=== PATIENT | female | born 1990 | race Two or more races ===

== ENCOUNTER 2021-05-08 21:43 | Emergency (ER) | payer MEDICAID, OTHER ==
[~2021-05-08] VITALS: Ht 167.6 cm; Wt 104.3 kg
[2021-05-08] MEDS ORDERED: CIPRSUS OT (23:23)
[2021-05-08] MEDS ORDERED: AMOX500C2 PO (23:23)
[2021-05-08 23:45] VITALS: BP 143/79
== END 2021-05-08 23:46 | disposition home or self-care (01) ==
LOC: ER 21:47
DX: H60.91 Unspecified otitis externa, right ear (principal); H66.91 Otitis media, unspecified, right ear

== ENCOUNTER 2024-12-12 18:42 | Emergency (ER) | payer MEDICAID ==
[~2024-12-12] VITALS: Ht 167.6 cm; Wt 102.6 kg
[~2024-12-12 18:42] MED LIST: AMOX500C2 PO; CIPRSUS OT
[2024-12-12 19:29] LABS: Hematocrit 40.2 % (36.0-46.0); Hemoglobin 14.2 g/dL (12.2-16.2); Mean Corpuscular Hemoglobin 29.6 pg (28.0-32.0); Mean Corpuscular Volume 84.1 fL (80.0-100.0); Nucleated Red Blood Cells % 0.0 %
--- NOTE | 2024-12-12 19:29 | DVH ---
EXAM: XY CHEST PORTABLE CLINICAL HISTORY: congestion TECHNIQUE: Single AP view of the chest WID: COMPARISON: None FINDINGS: Lines and tubes: None Chest: The heart size and pulmonary vasculature is within normal limits. No pleural effusion, pneumothorax, or consolidation. The osseous structures are grossly intact. IMPRESSION: 1. No acute cardiopulmonary abnormality.
[2024-12-12 19:43] LABS: Alanine Aminotransferase 31 U/L (7-40); Alkaline Phosphatase 98 U/L (46-116); Anion Gap 11 (5-15); BUN/Creatinine Ratio 14.1 (10.0-20.0); Blood Urea Nitrogen 12 mg/dL (9-23); Calcium 9.9 mg/dL (8.7-10.4); Carbon Dioxide 26 mmol/L (20-31); Chloride 104 mmol/L (98-107); Glucose 96 mg/dL (74-106); Lipase 44 U/L (12-53); Potassium 4.0 mmol/L (3.5-5.1); Sodium 141 mmol/L (136-145); Total Protein 8.0 g/dL (5.7-8.2)
--- NOTE | 2024-12-12 20:01 | ED.PDOC ---
History of Present Illness HPI Comments This is a 34 year-old female who presents to the ED with a chief complaint of L Lumbosacral pain, nasal congestion, and palpitations for X1 day. Patient reports taking medication X6 hours ago to alleviate symptoms, with some alleviation noted. Patient reports recent exposure to ill family. Patient has no further complaints or modifying factors at this time. Pt otherwise denies cough, chest pain, SOB, dizziness, fever, chills, or N/V/D. Past Medical History:None Past Surgical History: Hidradenitis Suppurativa Social History: Denies ETOH, smoking, and drug use. Medications:None Allergies: None hubbard: HPI: Poor Historian. REVIEW OF SYSTEMS: CONSTITUTIONAL: Denies acute: fever, diaphoresis, chills, HEAD: Denies acute: headache, photophobia Eyes: Denies acute: Double vision, vision loss, eye pain, eye discharge. EARS: Denies acute: tinnitus, hearing loss, ear discharge, ear pain, THROAT: Denies acute: sore throat, swelling, difficulty swallowing , pain with swallowing, change in voice. NECK: Denies acute: neck pain, neck swelling, stiff neck. HEART: Denies acute : chest pain, , LUNGS: Denies acute: SOB, wheezing, cough, hemoptysis ABDOMEN: Denies acute: abdominal pain, Nausea, Vomiting, diarrhea, melena , hematemesis, hematochezia SKIN: Denies acute: rash, redness, lesions, itchiness. EXTREMITIES: Denies acute: calf pain, numbness, tingling, weakness, denies pain in extremity. Denies acute: Low back pain. Neuro: Denies acute: focal neurological deficit, motor or sensory focal neurological deficit, tremors, seizure like activity, confusion, dizziness, change in mental status, loss of bowel or bladder function, cauda equina like symptoms. : Denies acute: dysuria, hematuria, flank pain, increase in urinary frequency. PSYCH: Denies acute: hallucination, suicidal ideation, homicidal ideation. FEMALE: Denies acute: abnormal vaginal bleeding, foul odor, unusual discharge. PHYSICAL EXAM: General: ---no-----acute distress, awake and alert. Head: normocephalic, atraumatic. Neck: supple, trachea is midline, no swelling. Throat: Normal phonation. Eyes:, no erythema, no purulent discharge, no proptosis, no icterus. Heart: regular tachycardia,, no significant murmur appreciated. Lungs: no apparent respiratory distress, Able to speak in full sentences. No wheezing, no rhonchi, no crackles. No stridors Clear to auscultation bilaterally. Abdomen: non tender to palpation, non distended, soft, no guarding, no rebound, + bowel sounds. Neuro: Awake, Alert, oriented to name, self, situation, follows commands GCS=15. Speech is normal. Skin: no petechia, no purpura, no cyanosis, non-pale, not jaundice. Lower extremities: --no - Pitting edema no deformity, no focal swelling, no calf TTP. Makes eye contact. moves all four extremities. Face: no apparent facial droop. No CVA tenderness to percussion bilaterally. Ambulating in the ED independently. ED COURSE: DISCLAIMER: This medical document was created using an electronic medical record system with voice recognition software and computerized dictation system. Although this document has been carefully reviewed, there might still be some phonetic and typographical errors. Occasional wrong-word or "sound-alike" substitutions may have occurred due to the inherent limitations of voice recognition software. These areas are purely typographical due to imperfections of the software programs and do not reflect any compromise in the patient's medical care. Please read the chart carefully and recognize, using context, where these substitutions have occurred. Chief Complaint: Abdominal Pain Time Seen by MD: 19:51 Primary Care Provider: OLIVER Reviewed Notes: Nurses Notes, Medications, Allergies Allergies: Coded Allergies: Clindamycin (Verified Allergy, Unknown, 12/12/24) Home Meds Active Scripts Ciprofloxacin-Hydrocortisone (Cipro Hc 0.2-1 %) 1 Amy Amy, 1 AMY OT BID for 7 Days, #3 DROP 3 drops to R ear (affected) as prescribed Prov:KALIN BUCKNER MD 05/08/21 Amoxicillin Trihydrate (Amoxicillin) 500 Mg Cap, 500 MG PO BID for 7 Days, #14 CAP Prov:KALIN BUCKNER MD 05/08/21 Information Source: Patient Mode of Arrival: Ambulatory Severity: Moderate Timing: Days Duration: Since onset Prehospital treatment: None Physical Exam General Appearance: Other (a) HEENT: Other (a) Neck: Other (a) Respiratory: Other (a) Cardiovascular: Other (a) Breast Exam: Other (a) Gastrointestinal: Other (a) Genitalia: Other (a) Pelvic: Other (a) Rectal: Other (a) Extremities: Other Neurologic: Other (a) Cerebellar Function: Other (a) Reflexes: Other (a) Skin: Other (a) Lymphatic: Other (a) Was a procedure done? Was a procedure done?: No Differential Dx Considerations may include: Includes but not limited to thyroid disease, encephalopathy, electrolyte abnormality, sepsis, infection, intracranial pathology, drug adverse effects, arrhythmia, kidney insufficiency, ACS, CVA, malignancy, anemia X-Ray, Labs, Meds, VS Vital Signs Date Time Temp Pulse Resp B/P (MAP) Pulse Ox O2 Delivery O2 Flow Rate FiO2 12/13/24 03:35 98.0 80 20 120/71 (87) 96 98.0 12/13/24 00:18 100 Room Air* 0 21 12/12/24 23:42 98.5 82 18 127/73 (91) 95 98.5 12/12/24 18:45 99.4 111 18 138/81 98 99.4 Lab Test 12/13/24 00:47 12/12/24 21:03 12/12/24 19:07 Range/Units Urine Color Light-yellow Yellow Urine Clarity Clear Clear Urine pH 6.0 5.0-9.0 Urine Specific Bailey 1.025 1.001-1.035 Urine Protein Negative Negative Urine Ketones Negative Negative Urine Blood Negative Negative /uL Urine Nitrite Negative Negative Urine Bilirubin Negative Negative Urine Urobilinogen Normal Negative mg/dL Urine Leukocyte Esterase Trace Negative /uL Urine RBC None seen 0 - 4 /hpf Urine Microscopic WBC 4 0-5 /HPF Urine Squamous Epithelial Cells Few <5 /hpf Urine Bacteria None seen None Seen /hpf Urine Mucus Few None Seen Urine Glucose Normal Normal mg/dL Influenza Type A Antigen Negative Negative Influenza Type B Antigen Negative Negative SARS-CoV-2 Antigen (Rapid) Negative NEGATIVE White Blood Count 10.8 4.4-10.8 10^3/uL Red Blood Count 4.78 4.0-5.20 10^6/uL Hemoglobin 14.2 12.2-16.2 g/dL Hematocrit 40.2 36.0-46.0 % Mean Corpuscular Volume 84.1 80.0-100.0 fL Mean Corpuscular Hemoglobin 29.6 28.0-32.0 pg Mean Corpuscular Hemoglobin Concent 35.2 32.0-36.0 g/dL Red Cell Distribution Width 14.9 H 11.8-14.3 % Platelet Count 349 140-450 10^3/uL Mean Platelet Volume 7.2 6.9-10.8 fL Neutrophils (%) (Auto) 70.6 37.0-80.0 % Lymphocytes (%) (Auto) 21.2 10.0-50.0 % Monocytes (%) (Auto) 6.2 0.0-12.0 % Eosinophils (%) (Auto) 1.7 0.0-7.0 % Basophils (%) (Auto) 0.3 0.0-2.0 % Neutrophils # (Auto) 7.7 1.6-8.6 10 ^3/uL Lymphocytes # (Auto) 2.3 0.4-5.4 10 ^3/uL Monocytes # (Auto) 0.7 0-1.3 10 ^3/uL Eosinophils # (Auto) 0.2 0-0.8 10 ^3/uL Basophils # (Auto) 0 0-0.2 10 ^3/uL Nucleated Red Blood Cells 0.0 % Sodium Level 141 136-145 mmol/L Potassium Level 4.0 3.5-5.1 mmol/L Chloride Level 104 98-107 mmol/L Carbon Dioxide Level 26 20-31 mmol/L Anion Gap 11 5-15 Blood Urea Nitrogen 12 9-23 mg/dL Creatinine 0.85 0.550-1.02 mg/dL Glomerular Filtration Rate Calc 93 >90 mL/min BUN/Creatinine Ratio 14.1 10.0-20.0 Serum Glucose 96 74-106 mg/dL Lactic Acid Level 1.3 0.4-2.0 mmol/L Calcium Level 9.9 8.7-10.4 mg/dL Total Bilirubin 0.2 0.2-1.0 mg/dL Aspartate Amino Transferase (AST) 26 13-40 U/L Alanine Aminotransferase (ALT) 31 7-40 U/L Alkaline Phosphatase 98 46-116 U/L Total Protein 8.0 5.7-8.2 g/dL Albumin 4.9 H 3.2-4.8 g/dL Lipase 44 12-53 U/L Monoscreen Pending Current Medications Medications (Trade) Dose Ordered Sig/Mc Route Start Time Stop Time Status Last Admin Sodium Chloride 1,000 ml @ 1,000 mls/hr Q1H ONCE IV 12/12/24 22:30 12/12/24 23:29 DC 12/12/24 23:54 [place] [id number] Ph: [phone] DIAGNOSTIC IMAGING Diagnostic Imaging Report : [id number] Signed PATIENT: SARA HUBBARDACCT: [id number] UNIT: [id number] : 1990 LOC: ER ROOM / BED: / AGE / SEX: 34 / F ADM STATUS: REG ER SERVICE 852 ORDERING PHYSICIAN: GEN LU DO PROCEDURE(s): CXRP - CHEST PORTABLE REASON: congestion ORDER NUMBER(s): [id number], ACCESSION NUMBER(s): [id number] EXAM: XY CHEST PORTABLE CLINICAL HISTORY: congestion TECHNIQUE: Single AP view of the chest WID: COMPARISON: None FINDINGS: Lines and tubes: None Chest: The heart size and pulmonary vasculature is within normal limits. No pleural effusion, pneumothorax, or consolidation. The osseous structures are grossly intact. IMPRESSION: 1. No acute cardiopulmonary abnormality. ATED BY: ADDISON NÚÑEZ MD DICTATED DATE/TIME: 12/12/241926 SIGNED BY: ADDISON NÚÑEZ MD SIGNED DATE/TIME: 12/12/241926 CC: Images Reviewed?: Images reviewed and evaluated by me Time of 1ST Reevaluation: 20:25 Reevaluation 1ST: Unchanged Time of 2ND Reevaluation: 00:48 (Urinalysis still pending) Patient Education/Counseling: Diagnosis, Treatment Family Education/Counseling: No Family Present Medical Screening: No EMC Exist At This Time Comments MDM: patient presented with the above HPI.--congestion and right lumbosacral pain----workup was initiated. patient was found with the above mentioned diagnosis. the following medications were ordered: please refer to order lists of meds and tests obtained by myself Dr. Lu. Patient ED course and VS have been stabilized. Patient has been reassessed in the ED and remained in a stable condition. Pertinent incidental findings were discussed with the patient and/or family. Patient/family voices understanding and is agreeable with plan. Patient has been observed in the ED adequate length of time to insure improvement/stability. Escalation of care considered: Consideration of escalation to observation or admission [place] screen testing is not available at the hospital at this time. Patient has been afebrile here in the ED without any interventions. Patient is nontoxic in appearance. Workup has been unremarkable. Patient was DISCHARGED home in a stable condition. All the reports of any imaging studies that were ordered by myself were reviewed by myself. SEPSIS Sepsis Screen Date sepsis recognized/suspect: Dec 12, 2024 Time Sepsis recognized/suspect: 1845 Recent Procedure: No On Antibiotic Therapy: No Respiratory Rate >20: No Heart Rate >90: Yes Temp<36 C (96.8 F) or >38.3 C: No SBP <90 or MAP <65 mmHG: No New Acute Mental Status Change: No Is the patient on CPAP, BIPAP,: No Physician Orders Agricultural Equipment Sales Engineer (12/12/24 ) Chest Portable (12/12/24 18:56) MONO (12/12/24 18:56) Vital Signs Date Time Temp Pulse Resp B/P (MAP) Pulse Ox O2 Delivery O2 Flow Rate FiO2 12/13/24 03:35 98.0 80 20 120/71 (87) 96 98.0 12/13/24 00:18 100 Room Air* 0 21 12/12/24 23:42 98.5 82 18 127/73 (91) 95 98.5 12/12/24 18:45 99.4 111 18 138/81 98 99.4 Laboratory Tests Test 12/12/24 19:07 Lactic Acid Level 1.3 mmol/L (0.4-2.0) White Blood Count 10.8 10^3/uL (4.4-10.8) Medications Medications Dose Ordered Sig/Mc Route Start Time Stop Time Status Last Admin Dose Admin Sodium Chloride 1,000 ml @ 1,000 mls/hr Q1H ONCE IV 12/12/24 22:30 12/12/24 23:29 DC 12/12/24 23:54 Departure 1 Departure Time of Disposition: 21:31 Impression: Primary Impression: Low back pain Disposition: HOME / SELF CARE / HOMELESS Condition: Stable Additional Instructions: Additional instructions: Please read all instructions provided in this packet carefully. You MUST follow-up with your primary care/family doctor in 1 to 2 days. If you are unable to see your primary care/family doctor, please return to our emergency room for re-assessment and re-evaluation in 1 to 2 days. Return to the emergency room here in our facility or to the nearest ER [facility] if your symptoms change or worsen. CONSULTATIONS: you MUST Follow-up for consultation as soon as possible with: Dr.-OB Mcgee doctor in 1-2 days. Please call for appointment You MUST call the consultants office yourself to make an appointment. You may need to arrange that through your insurance and/or your primary/family doctor. If you are unable to see the sql server consultant in 1 to 2 days, you must return to our emergency room (or any other ER of your choice) for re-assessment and re- evaluation. Adequate fluid hydration. Although you have been discharged from the Emergency Department, this does not mean that you have a "clean bill of health". No definitive diagnosis for your symptoms has been made today. It is possible that you are in the process of developing a serious illness. This is why you must return to the ED without fail if any new or worsening symptoms develop. Below is a copy of your radiological report for follow up: Discharged With: Self Critical Care Note Critical Care Time?: No I personally scribed for GEN LU DO ([email or web address]) on 12/12/24 at 20:01. Electronically submitted by Kaitlynn Houser ([facility]). I personally scribed for GEN LU DO ([email or web address]) on 12/12/24 at 20:01. Electronically submitted by Kaitlynn Houser ([facility] [facility]). I personally scribed for GEN LU DO ([email or web address]) on 12/12/24 at 20:04. Electronically submitted by Kaitlynn Houser ([facility] [facility]). I personally scribed for GEN LU DO ([email or web address]) on 12/12/24 at 20:06. Electronically submitted by Kaitlynn Houser ([facility]). I personally scribed for GEN LU DO ([email or web address]) on 12/12/24 at 21:38. Electronically submitted by Kaitlynn Houser ([facility]). GEN LU DO Dec 12, 2024 20:01
[2024-12-12 20:02] LABS: Albumin 4.9 g/dL (3.2-4.8); Bilirubin, Total 0.2 mg/dL (0.2-1.0)
[2024-12-12 21:10] LABS: COVID19 ANTIGEN SOFIA FIA NEGATIVE (NEGATIVE)
[2024-12-12] MEDS: SODIUM CHLORIDE 0.9% 1,000 ML IV ONE (23:54)
[2024-12-13 00:18] VITALS: O2SAT 100
[2024-12-13 01:42] LABS: Urine Protein, UAD Negative (Negative)
[2024-12-13 03:35] VITALS: BP 120/71; PULSE 80; RESP 20; TEMP 98; O2SAT 96
== END 2024-12-13 03:35 | disposition home or self-care (01) ==
LOC: ER 18:45
DX: M54.50 Low back pain, unspecified (principal); Z88.1 Allergy status to other antibiotic agents; Z79.899 Other long term (current) drug therapy; Z20.822 Contact with and (suspected) exposure to COVID-19
CPT/HCPCS: 36415; 71045; 80053; 81001; 83605; 83690; 85025; 86308; 87426; 87804; 99284; J7030